=== PATIENT | male | born 1960 | race Caucasian/White ===

== ENCOUNTER 2018-07-11 23:22 | Emergency (ER) | payer OTHER ==
[~2018-07-11] VITALS: Ht 182.9 cm; Wt 115.4 kg
[~2018-07-11 23:22] MED LIST: ASPIR-LOW81 MG PO; Aspirin E.C. PO; KEFLEX500 MG PO; LORTAB 5-325 M1 EACH PO; LOVASA; Levothroid,Synthroid PO; PERCOCET 5/31 TABLET PO; PRAVACHOL10 MG PO; PRILOSEC40 MG PO; Pravachol PO; Requip PO; SYNTHROID25 MCG PO; Vicodin,Norco 5/325 PO; Zestril,Prinivil PO; Zoloft PO; Zyloprim PO
[2018-07-11 23:45] LABS: APPEARANCE CLOUDY ((CLEAR)); BILIRUBIN NEGATIVE; BLOOD LARGE; COLOR YELLOW ((YELLOW)); GLUCOSE (STRIP) NEGATIVE; KETONES NEGATIVE; LEUKOCYTES NEGATIVE; NITRITE NEGATIVE; PROTEIN (STRIP) 100; SPECIFIC GRAVITY 1.026 (1.000-1.030)
[2018-07-11 23:53] LABS: HEMATOCRIT 40.9 % (38.0-50.0); HEMOGLOBIN 13.8 G/DL (12.5-16.6); MCH 31.9 PG (29.0-34.0); MCHC 33.7 G/DL (30.0-36.0); MCV 94.5 FL (86-99); PLATELET COUNT 186 K/uL (156-360); RBC DIS.WIDTH-CV 12.9 % (11.8-14.6); RBC DIS.WIDTH-SD 44.6 % (39-53); RED BLOOD COUNT 4.33 M/uL (4.00-5.50); WHITE BLOOD COUNT 7.4 K/uL (4.1-10.2)
[2018-07-11 23:57] LABS: BACTERIA RARE /HPF; EPITHELIAL CELLS NONE SEEN /HPF; HYALINE CASTS 0-5 /LPF; MUCUS 4+ /LPF; RED BLOOD CELLS TNTC /HPF (0-5); UCUL ADDED? YES
[2018-07-12 00:06] LABS: CHLORIDE 108 mEq/L (99-109); POTASSIUM 3.9 mEq/L (3.7-5.4); SODIUM 140 mEq/L (136-147)
[2018-07-12 00:08] LABS: GLUCOSE 171 mg/dL (70-99)
[2018-07-12 00:12] LABS: CREATININE 1.1 mg/dL (0.6-1.3); GFR ESTIMATE (CALCULATED) > 59 mL/min/ (58.99-99999)
[2018-07-12 00:13] LABS: UREA NITROGEN (BUN) 16 mg/dL (9-23)
[2018-07-12] MEDS ORDERED: KEFLEX500 MG PO (02:14)
[2018-07-12] MEDS ORDERED: FLOMAX0.4 MG PO (02:14)
[2018-07-12] MEDS ORDERED: PERCOCET 10/1 TABLET PO (02:14)
[2018-07-12 02:36] VITALS: BP 107/65
== END 2018-07-12 02:37 | disposition home or self-care (01) ==
LOC: EME 23:22
DX: N13.2 Hydronephrosis with renal and ureteral calculous obstruction (principal); E78.5 Hyperlipidemia, unspecified; I10 Essential (primary) hypertension; F32.9 Major depressive disorder, single episode, unspecified; E03.9 Hypothyroidism, unspecified; M10.9 Gout, unspecified; Z90.49 Acquired absence of other specified parts of digestive tract; Z79.82 Long term (current) use of aspirin; G25.81 Restless legs syndrome
CPT/HCPCS: 74176; 80048; 81003; 85027; 87086; 99281; 99284